=== PATIENT | female | born 1975 | race African-American/Black ===

== ENCOUNTER 2018-02-08 23:28 | Emergency (ER) | payer BC ==
[2018-02-08 23:47] VITALS: BP 140/92; PULSE 86; TEMP 97.9; BMI 31.6
--- NOTE | 2018-02-08 23:54 | PDOC ---
History of Present Illness - General Chief Complaint: Weakness Stated Complaint: WEAK Time Seen by Provider: 02/08/18 23:54 - History of Present Illness Initial Comments: This 42-year-old woman with a history of anemia and DM presents with 1 day history of generalized, vague weakness. Patient denies fever/chills, shortness of breath, cough, nausea/vomiting/diarrhea, chest or abdominal pain. She states that she has a history of anemia (she believes it is iron deficiency anemia) but t states she received a transfusion at [facility] several days ago. No history of hospitalization for her diabetes mellitus or history of DKA. Her PMD is a physician whose name she "cannot pronounce". 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 She also states that material for glucose monitoring is waiting for her at her pharmacy in [place]. She admits that she is not following a diabetic diet. Patient refuses to give legitimate address(address that she provided is a post office). She is unsure of any other medications other than insulin No known ALLERGIES Past History - Past Medical History Allergies/Adverse Reactions: Allergies Allergy/AdvReac Type Severity Reaction Status Date / Time No Known Allergies Allergy Verified 02/08/18 23:30 Home Medications: Ambulatory Orders Unobtainable 02/08/18 Anemia: Yes COPD: No - Suicide/Smoking/Psychosocial Hx Smoking History: Never smoked Have you smoked in the past 12 months: No Information on smoking cessation initiated: No Hx Alcohol Use: No Drug/Substance Use Hx: No Substance Use Type: None Review of Systems - Review of Systems Able to Perform ROS?: Yes Comments:: 12 point review of systems is negative except for what is noted in the history of present illness *Physical Exam - Vital Signs Last Vital Signs Temp Pulse Resp BP Pulse Ox 97.9 F 86 16 140/92 98 02/08/18 23:36 02/08/18 23:36 02/08/18 23:36 02/08/18 23:36 02/08/18 23:36 - Physical Exam Comments: GENERAL: Adult female, alert and oriented 3, in no acute distress HEAD: Normal with no signs of trauma. EYES: PERRLA, EOMI, sclera anicteric, conjunctiva clear. ENT: Ears normal, nares patent, oropharynx clear without exudates. Moist mucous membranes. NECK: Normal range of motion, supple without lymphadenopathy, JVD, or masses. LUNGS: Breath sounds equal, clear to auscultation bilaterally. No wheezes, and no crackles. HEART:Regular rate and rhythm, normal S1 and S2 without murmur, rub or gallop. ABDOMEN:.normal bowel sounds No guarding,tenderness or rebound.No masses No distention. EXTREMITIES: Normal range of motion, no edema. No clubbing or cyanosis. No erythema, or tenderness. NEUROLOGICAL: Cranial nerves II through XII grossly intact. Normal speech. No focal neurological deficits. MUSCULOSKELETAL: Back non-tender to palpation, no CVA tenderness SKIN: Warm, Dry, normal turgor, no rashes or lesions noted. 12-lead electrocardiogram is performed and interpreted by me: 12-lead electrocardiogram at 80 bpm; intervals, wave forms and axis are all normal. There is no evidence of acute ST or T-wave abnormalities. No evidence of cardiac arrhythmia. Random fingerstick glucose 362 Medical Decision Making - Medical Decision Making This 42-year-old woman with apparent history of anemia/DM has a vague description of generalized weakness without other significant symptoms. She is not forthcoming with much details regarding her past history or her current medications/medical follow-up. Exam as noted with normal vital signs and no evidence of acute dehydration/infection. No evidence of diabetic ketoacidosis or hyperosmolar state Twelve-lead electrocardiogram is normal as noted. Random fingerstick is elevated but patient admits to not following a diabetic diet and has not yet started insulin that has been prescribed (she has had to orange picker machine operator the medication at her pharmacy). Patient will be discharged with instructions to drink plenty of water and to orange picker machine operator her insulin and glucose monitoring equipment as soon as possible from her pharmacy. Her follow-up with her physician should be within the next 48 hours. 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
[2018-02-09] MEDS ORDERED: HEMOQUE TEST 1 EACH EACH ONE (00:17)
[2018-02-09] MEDS ORDERED: IBUPROFEN 600 MG TABLET (FP) PO ONE (01:02)
--- NOTE | 2018-02-09 16:44 | EKG ---
Test Reason : Blood Pressure : / mmHG Vent. Rate : 080 BPM Atrial Rate : 080 BPM P-R Int : 194 ms QRS Dur : 082 ms QT Int : 394 ms P-R-T Axes : 035 029 017 degrees QTc Int : 454 ms NORMAL SINUS RHYTHM NORMAL ECG NO PREVIOUS ECGS AVAILABLE Confirmed by Pérez Bowles ([id number]) on 02/09/2018 4:44:10 PM Referred By: MD VIRK Confirmed By:Pérez Bowles
== END 2018-02-09 01:03 | disposition home or self-care (01) ==
LOC: FER 23:28
DX: E11.9 Type 2 diabetes mellitus without complications (principal)
CPT/HCPCS: 82962; 93005; 99281-25